=== PATIENT | female | born 1985 | race Caucasian/White ===

== ENCOUNTER 2017-09-23 15:27 | Emergency (ER) | END 2017-09-23 19:14 | disposition home or self-care (01) ==

== ENCOUNTER 2018-03-28 20:10 | Inpatient (IN) | END 2018-03-30 17:20 | disposition home or self-care (01) | DRG 778 ==

== ENCOUNTER 2018-04-16 16:33 | Outpatient (CLI) | END 2018-04-16 18:10 | disposition home or self-care (01) ==

== ENCOUNTER 2018-04-20 12:53 | Outpatient (CLI) | END 2018-04-20 15:30 | disposition home or self-care (01) ==

== ENCOUNTER 2018-04-21 21:50 | Inpatient (IN) | END 2018-04-23 15:15 | disposition home or self-care (01) | DRG 807 ==